=== PATIENT | female | born 1995 ===

== ENCOUNTER 2021-11-29 01:12 | Emergency (ER) ==
[~2021-11-29] VITALS: Ht 157.5 cm; Wt 61.0 kg
[2021-11-29] MEDS ORDERED: GABA800T4 PO (01:26)
[2021-11-29] MEDS ORDERED: SUBO8MIS SL (01:26)
[2021-11-29] MEDS ORDERED: ALPR1TAB3 PO (01:26)
== END 2021-11-29 04:52 | disposition left against medical advice (07) ==
LOC: M ED 01:12
DX: Z53.21 Procedure and treatment not carried out due to patient leaving prior to being seen by health care provider (principal)